=== PATIENT | female | born 1935 | race Caucasian/White ===

== ENCOUNTER 2021-01-07 19:21 | Observation (INO) | payer MEDICARE, OTHER ==
[2021-01-07 19:39] LABS: Glucose,Whole Blood 141 mg/dL (75-99)
[2021-01-07] MEDS ORDERED: NITROGLYCERIN SL TABS 0.4 MG TAB SUBLINGUAL PRN (19:42)
--- NOTE | 2021-01-07 19:42 | ED ---
General Adult HPI - General Stated complaint: Abnormal Labs Time Seen by Provider: 01/07/21 19:21 Source: patient, RN notes reviewed, old records reviewed - History of Present Illness Initial comments: This is an 85-year-old female presents emergency department from [facility]. She has a past medical history significant for anemia soft to cancer bypass surgery. Patient was weak today and slowly went down to the floor and was then brought to the hospital when she got there her sugar was in the 50s and they gave her an amp of D50 and she was feeling much better at that point in time however because she bumped her head they did a CAT scan which showed no acute abnormality. Lab work was done and a chest x-ray was done. According to the physician there the patient's troponin was elevated at 0.107 and he repeated a few hours later and was 0.123. Patient has no history today of any chest pain or difficulty breathing because of the elevated troponin the physician wanted the patient to be evaluated by cardiology. I spoke with the patient she has no complaints currently and feels at her baseline. Patient states she had a transfusion of packed red blood cells yesterday. - Related Data Allergies Allergy/AdvReac Type Severity Reaction Status Date / Time codeine AdvReac Confusion Verified 01/07/21 19:45 Sulfa (Sulfonamide AdvReac Confusion Verified 01/07/21 19:45 Antibiotics) Review of Systems ROS Statement: Those systems with pertinent positive or pertinent negative responses have been documented in the HPI. ROS Other: All systems not noted in ROS Statement are negative. General Exam - General Exam Comments Initial Comments: GENERAL: Patient is well-developed and well-nourished. Patient is nontoxic and well- hydrated and is in no acute distress. ENT: Neck is soft and supple. No significant lymphadenopathy is noted. Oropharynx is clear. Moist mucous membranes. Neck has full range of motion without eliciting any pain. EYES: The sclera were anicteric and conjunctiva were pink and moist. Extraocular movements were intact and pupils were equal round and reactive to light. Eyelids were unremarkable. PULMONARY: Unlabored respirations. Good breath sounds bilaterally. No audible rales rhonchi or wheezing was noted. CARDIOVASCULAR: There is a regular rate and rhythm without any murmurs gallops or rubs. ABDOMEN: Soft and nontender with normal bowel sounds. SKIN: Skin is clear with no lesions or rashes and otherwise unremarkable. NEUROLOGIC: Patient is alert and oriented x3. Cranial nerves II through XII are grossly intact. Motor and sensory are also intact. Normal speech, volume and content. Symmetrical smile. MUSCULOSKELETAL: Normal extremities with adequate strength and full range of motion. No lower extremity swelling or edema. No calf tenderness. LYMPHATICS: No significant lymphadenopathy is noted PSYCHIATRIC: Normal psychiatric evaluation. Course Vital Signs 01/07/21 19:39 Temperature 98.7 F Pulse Rate 86 Respiratory 19 Rate Blood Pressure 140/60 O2 Sat by Pulse 96 Oximetry Medical Decision Making - Medical Decision Making I reviewed all the patient's lab work and x-rays and CAT scans from the other facility. I spoke with Dr. Chowdhury agreed to admit the patient admitted the patient I wrote admitting orders I consult cardiology. Because the patient's anemia I did not start the patient on heparin. EKG shows normal sinus rhythm at 82 bpm AR interval is on a 42 QRS is 86 QT interval 342 QTC is 399. Patient's EKG shows no ST segment elevation or depression. - Lab Data Lab Results 01/07/21 Range/Units 19:27 POC Glucose (mg/dL) 141 H (75-99) mg/dL POC Glu Reversal Print Inspector ID Lesley Serrano Disposition Clinical Impression: Elevated troponin, Fall, Anemia, History of esophageal cancer Disposition: ADMITTED IP TO THIS HOSP Referrals: Sudheer Lund MD [Primary Care Provider] - 1-2 days Time of Disposition: 19:41
[2021-01-07 20:17] LABS: Anisocytosis Slight; Basophils % (A) 0 %; Eosinophils # (A) 0.1 k/uL (0-0.7); Eosinophils % (A) 3 %; HCT 30.5 % (34.0-46.0); HGB 9.8 gm/dL (11.4-16.0); Hypochromasia Slight; Lymphocytes # (A) 0.6 k/uL (1.0-4.8); Lymphocytes % (A) 11 %; MCH 24.6 pg (25.0-35.0); MCHC 32.2 g/dL (31.0-37.0); MCV 76.5 fL (80.0-100.0); Mean Platelet Volume 8.2; Microcytosis Slight; Monocytes # (A) 0.3 k/uL (0-1.0); Monocytes % (A) 5 %; Neutrophils # (A) 4.4 k/uL (1.3-7.7); Neutrophils % (A) 81 %; Platelet Count 236 k/uL (150-450); RBC 3.99 m/uL (3.80-5.40); RDW 19.1 % (11.5-15.5); WBC 5.5 k/uL (3.8-10.6)
[2021-01-07] MEDS ORDERED: ONDANSETRON ODT 4 MG TAB PO PRN (21:33)
[2021-01-07 21:44] LABS: Glucose,Whole Blood 110 mg/dL (75-99)
[2021-01-07] MEDS: INSULIN ASPART (NovoLOG) 100 UNIT/ML VIAL SQ SCH (22:08)
[2021-01-08] MEDS ORDERED: NITROGLYCERIN OINT 1 INCH/GM PACKET TOPICAL SCH
[2021-01-08 03:30] LABS: Glucose,Whole Blood 192 mg/dL (75-99)
[2021-01-08 06:07] LABS: Glucose,Whole Blood 181 mg/dL (75-99)
[2021-01-08] MEDS: INSULIN ASPART (NovoLOG) 100 UNIT/ML VIAL SQ SCH ×4 (06:44→21:51)
[2021-01-08] MEDS: PANTOPRAZOLE 40 MG TABLET PO SCH (06:44)
[2021-01-08] MEDS: LEVOTHYROXINE 125 MCG TAB PO SCH (06:44)
[2021-01-08] MEDS: ATORVASTATIN 40 MG TAB PO SCH (08:34)
[2021-01-08] MEDS: ESCITALOPRAM 20 MG TAB PO SCH (08:34)
[2021-01-08] MEDS: ASPIRIN 81 MG PO SCH (08:34)
[2021-01-08] MEDS: FENOFIBRATE 160 MG TAB PO SCH (08:35)
[2021-01-08] MEDS: INSULIN DETEMIR (LEVEMIR) 100 UNIT/ML SYR SQ SCH (08:35)
[2021-01-08] MEDS: ISOSORBIDE MONONITRATE ER 30 MG TAB.ER.24H PO SCH (08:35)
[2021-01-08] MEDS: LACTOBACILLUS ACIDOPH & BULGAR 1 EACH PACKET PO SCH (08:35)
[2021-01-08] MEDS: metFORMIN 500 MG TAB PO SCH ×2 (08:41→17:19)
[2021-01-08] MEDS ORDERED: NON FORMULARY DRUG (Dulaglutide [Trulicity] 1.5 MG/0.5 ML Each) SQ SCH (09:00)
[2021-01-08] MEDS ORDERED: ASPIRIN 325 MG TAB PO SCH (09:00)
[2021-01-08 09:19] LABS: Anisocytosis Slight; Basophils % (A) 0 %; Eosinophils # (A) 0.1 k/uL (0-0.7); Eosinophils % (A) 3 %; HGB 9.3 gm/dL (11.4-16.0); Hypochromasia Marked; Lymphocytes # (A) 0.6 k/uL (1.0-4.8); Lymphocytes % (A) 15 %; MCH 24.1 pg (25.0-35.0); MCV 80.3 fL (80.0-100.0); Mean Platelet Volume 7.7; Microcytosis Slight; Monocytes # (A) 0.3 k/uL (0-1.0); Monocytes % (A) 7 %; Neutrophils # (A) 2.8 k/uL (1.3-7.7); Neutrophils % (A) 73 %; Platelet Count 203 k/uL (150-450); RBC 3.86 m/uL (3.80-5.40); RDW 18.9 % (11.5-15.5); WBC 3.8 k/uL (3.8-10.6)
[2021-01-08 09:23] LABS: Calcium 8.8 mg/dL (8.4-10.2); Potassium 4.5 mmol/L (3.5-5.1)
--- NOTE | 2021-01-08 11:25 | P.CRDCN ---
History of Present Illness History of present illness: HISTORY OF PRESENTING ILLNESS This is a pleasant 85-year-old female past medical history significant for coronary artery disease s/p 4v CABG (Per patient's son it was and done in [facility]), type 2 diabetes, hypertension, hypothyroidism, esophageal cancer with chemotherapy and radiation, anemia with blood transfusions as an outpatient, most recently in 01/06 per [facility] report. She is a poor historian. Per patient's son, Patient sees Dr. Kc in [place]. We have been asked to see in consultation for elevated troponin. Patient is seen and examined at bedside. She states she has been in and out of the hospital for some time. Patient was transferred from [facility] yesterday. She states yesterday she was feeling lightheaded and fell at home in the morning, she did hit her head. She states when she falls, she states she does not getting warning signs. She will just be walking, and feel like she is going to go down to the ground. This has happened at least 3 times in the past 1-2 months. She is unable to give an accurate story of the event. When EMS arrived her initial blood sugar was in the 50s, which improved with PO Dextrose. She states she has followed with a advanced solutions architect but unsure when and does not know the specifics of her workup. She has been feeling short of breath lately. She denies loss of consciousness, dizziness, chest pain, orthopnea or PND, palpitations. Denies bleeding in urine or stool. She denies history of stroke. Denies smoking. Patient is unsure of what medications she takes at home. Workup at [facility] revealed Lab data- Sodium 138, K 4.4, BUN 16, sCr 0.8, Troponin 0.12, 0.10, blood sugars 65, 135, WBC 2.8, Hgb 8.5, Platelets 231. CT head report revealed- no acute intracranial hemorrhage or midline shift. Mild to moderate diffuse age related cerebral atrophy and chronic small vessel ischemic change. No significant change from Prior CT Chest xray- Stable cardiomegaly. Overlying sternal wires and mediastinal clips. No suspicious acute cardiopulmonary process. DIAGNOSTICS EKG reveals sinus mechanism HR 82, non-specific ST-T wave abnormalities .No prior EKG to compare Telemetry tracings indicate sinus mechanism HR 70-80s Laboratory reviewed, WBC 5.5, Hgb 9.8, Plt 236, sodium 136, potassium 4.5, BUN 18, serum creatinine 0.9, proBNP 1040 Current home cardiac medications listed in the chart include metoprolol wiley ccinate 25mg daily, Lasix 40mg daily, Fenofibrate 134mg daily, Aspirin 81mg daily atorvastatin 40mg daily. REVIEW OF SYSTEMS At the time of my exam: CONSTITUTIONAL: Denies fever or chills. CARDIOVASCULAR: +shortness of breath Denies chest pain, orthopnea, PND or palpitations. RESPIRATORY: Denies cough. GASTROINTESTINAL: Denies abdominal pain, diarrhea, constipation, nausea or vomiting. MUSCULOSKELETAL: Denies myalgias. NEUROLOGIC: +lightheadedness Denies numbness, tingling, headacbe or weakness. ENDOCRINE: Denies fatigue, weight change, polydipsia or polyurina. GENITOURINARY: Denies burning, hematuria or urgency with micturation. HEMATOLOGIC: + history of anemia, Denies bleeding. PHYSICAL EXAMINATION Blood pressure 148/70 heart rate 83 afebrile and maintaining oxygen saturation on room air. CONSTITUTIONAL: No apparent distress. HEENT: Head is normocephalic. Pupils are equal, round. Sclerae anicteric. Mucous membranes of the mouth are moist. No JVD. CHEST EXAMINATION: Lungs are clear to auscultation. No chest wall tenderness is noted on palpation or with deep breathing. HEART EXAMINATION: Regular rate and rhythm. S1, S2 heard. Systolic murmur noted at apex No gallops or rub. ABDOMEN: Soft, nontender. Positive bowel sounds. EXTREMITIES: 2+ peripheral pulses, no lower extremity edema and no calf tenderness. SKIN: warm, dry NEUROLOGIC EXAMINATION: Patient is awake, alert and oriented x 2-3. She is unaware of her medical history. ASSESSMENT Elevated troponin no EKG evidence of ischemia and no chest pain Multiple Falls, unclear etiology at this time Type 2 Diabetes Hypoglycemia Coronary artery disease s/p 4vessel CABG early PLAN Obtain 2D echocardiogram and doppler study to assess cardiac structure and function. Will obtain records from Dr. Kc's office. Continue home cardiac medications aspirin, statin, metoprolol succinate, and Imdur, fenofibrate Unclear why patient is not on an ACEI/ARB, will review records. Further recommendations based on clinical course Nurse Practitioner note has been reviewed, I agree with a documented findings and plan of care. Patient was seen and examined. Past Medical History Past Medical History: Diabetes Mellitus, GERD/Reflux, Hypertension, Thyroid Disorder Additional Past Medical History / Comment(s): esophagus cancer. blood tra nsfusions (anemia). anxiety. CHF. History of Any Multi-Drug Resistant Organisms: None Reported Past Surgical History: Cholecystectomy, Coronary Bypass/CABG, Orthopedic Surgery Additional Past Surgical History / Comment(s): D & C. cataracts. bladder surgery. stripping and ligation of vein of lower leg. Right hip. back. Past Anesthesia/Blood Transfusion Reactions: No Reported Reaction Past Psychological History: No Psychological Hx Reported Smoking Status: Never smoker Past Alcohol Use History: None Reported Past Drug Use History: None Reported Medications and Allergies Home Medications Medication Instructions Recorded Confirmed Type Aspirin EC [Ecotrin Low Dose] 81 mg PO DAILY 01/07/21 01/07/21 History Atorvastatin Calcium [Lipitor] 40 mg PO DAILY 01/07/21 01/07/21 History Bifidobacterium Infantis [Align] 4 mg PO DAILY 01/07/21 01/07/21 History Cetirizine HCl [Zyrtec] 10 mg PO DAILY 01/07/21 01/07/21 History Dulaglutide [Trulicity] 1.5 mg SQ WE 01/07/21 01/07/21 History Ergocalciferol (Vitamin D2) 1,250 mcg PO WE 01/07/21 01/07/21 History [Drisdol (50,000 Iu)] Escitalopram [Lexapro] 20 mg PO DAILY 01/07/21 01/07/21 History Fenofibrate,Micronized 134 mg PO DAILY 01/07/21 01/07/21 History [Fenofibrate] Fluticasone Nasal [place] [Flonase 1 spray EA NOSTRIL DAILY 01/07/21 01/07/[address] Nasal [place]] Furosemide [Lasix] 40 mg PO DAILY 01/07/21 01/07/21 History Ibuprofen 400 mg PO Q8H PRN 01/07/21 01/07/21 History Insulin Degludec [Tresiba 32 units SQ DAILY 01/07/21 01/07/21 History Flextouch U-100 Pen] Isosorbide Mononitrate ER [Imdur] 30 mg PO DAILY 01/07/21 01/07/21 History Levothyroxine Sodium [Synthroid] 125 mcg PO DAILY 01/07/21 01/07/21 History Meclizine [Antivert] 25 mg PO DAILY 01/07/21 01/07/21 History Ondansetron Odt [Zofran Odt] 4 mg PO Q8HR PRN 01/07/21 01/07/21 History Pantoprazole Sodium [Protonix] 20 mg PO DAILY 01/07/21 01/07/21 History Potassium Chloride [Potassium 8 meq PO DAILY 01/07/21 01/07/21 History Chloride ER] metFORMIN HCL 500 mg PO BID 01/07/21 01/07/21 History Metoprolol Succinate (ER) [Toprol 25 mg PO DAILY 01/08/21 01/08/21 History Xl] Mirabegron [Myrbetriq] 50 mg PO DAILY 01/08/21 01/08/21 History Allergies Allergy/AdvReac Type Severity Reaction Status Date / Time codeine AdvReac Confusion Verified 01/07/21 20:37 Sulfa (Sulfonamide AdvReac Confusion Verified 01/07/21 20:37 Antibiotics) Physical Exam Vitals: Vital Signs Temp Pulse Pulse Resp BP BP Pulse Ox 01/08/21 03:30 97.9 F 83 16 148/70 94 L 01/08/21 00:00 83 16 136/56 96 01/07/21 21:45 98.0 F 81 18 146/69 96 01/07/21 19:39 98.7 F 86 19 140/60 96 Intake and Output 01/07/21 01/08/21 01/08/21 22:59 06:59 14:59 Other: Voiding Method Toilet Toilet # Voids 2 Weight 75.296 kg 77.5 kg Results 01/08/21 07:15 01/08/21 07:15 Cardiac Enzymes 01/07/21 01/07/21 Range/Units 20:10 22:41 Troponin I 0.123 H* 0.118 H* (0.000-0.034) ng/mL CBC 01/07/21 Range/Units 20:10 WBC 5.5 (3.8-10.6) k/uL RBC 3.99 (3.80-5.40) m/uL Hgb 9.8 L (11.4-16.0) gm/dL Hct 30.5 L (34.0-46.0) % Plt Count 236 (150-450) k/uL Current Medications Generic Name Dose Route Start Last Admin Trade Name Freq PRN Reason Stop Dose Admin Aspirin 81 mg 01/08/21 09:00 Aspirin 81 Mg PO DAILY [facility] Atorvastatin Calcium 40 mg 01/08/21 09:00 Atorvastatin 40 Mg Tab PO DAILY [facility] Escitalopram Oxalate 20 mg 01/08/21 09:00 Escitalopram 20 Mg Tab PO DAILY [facility] Fenofibrate 160 mg 01/08/21 09:00 Fenofibrate 160 Mg Tab PO DAILY [facility] Insulin Aspart 0 unit 01/07/21 21:34 01/08/21 06:44 Insulin Aspart (Novolog) 100 Unit/Ml Vial SQ 100 unit ACHS [facility] Administration Protocol Insulin Detemir 26 unit 01/08/21 09:00 Insulin Detemir (Levemir) 100 Unit/Ml Syr SQ DAILY [facility] Isosorbide Mononitrate 30 mg 01/08/21 09:00 Isosorbide Mononitrate Er 30 Mg Tab.Er.24h PO DAILY [facility] Lactobacillus Acidoph/Bulgaricus 1 each 01/08/21 09:00 Lactobacillus Acidoph & Bulgar 1 Each Packet PO DAILY [facility] Levothyroxine Sodium 125 mcg 01/08/21 06:30 01/08/21 06:44 Levothyroxine 125 Mcg Tab PO 125 mcg DAILY@0630 [facility] Administration Metformin HCl 500 mg 01/08/21 07:30 Metformin 500 Mg Tab PO BID-W/MEALS [facility] Nitroglycerin 0.4 mg 01/07/21 19:42 Nitroglycerin Sl Tabs 0.4 Mg Tab SUBLINGUAL Q5M PRN Chest Pain Non-Formulary Medication 1.5 mg 01/08/21 09:00 Dulaglutide [Trulicity] SQ WE [facility] Ondansetron HCl 4 mg 01/07/21 21:33 Ondansetron Odt 4 Mg Tab PO Q8HR PRN Nausea And Vomiting Pantoprazole Sodium 40 mg 01/08/21 07:30 01/08/21 06:44 Pantoprazole 40 Mg Tablet PO 40 mg [id number] [facility] Administration Intake and Output 01/07/21 01/08/21 01/08/21 22:59 06:59 14:59 Other: Voiding Method Toilet Toilet # Voids 2 Weight 75.296 kg 77.5 kg 01/07/21 20:10
--- NOTE | 2021-01-08 11:28 | ECHOF ---
Referral Reason:LV function MEASUREMENTS -------- HEIGHT: 157.5 cm WEIGHT: 77.1 kg BP: IVSd: 1.4 cm (0.6 - 1.1) LVIDd: 4.3 cm (3.9 - 5.3) LVPWd: 1.1 cm (0.6 - 1.1) IVSs: 1.7 cm LVIDs: 3.1 cm LVPWs: 1.5 cm LAESV Index (A-L): 47.97 ml/m Ao Diam: 2.9 cm (2.0 - 3.7) AV Cusp: 1.3 cm (1.5 - 2.6) LA Diam: 3.9 cm (2.7 - 3.8) MV EXCURSION: 14.924 mm (> 18.000) MV EF SLOPE: 56 mm/s (70 - 150) EPSS: 0.6 cm MV E Mendoza: 1.19 m/s MV DecT: 246 ms MV A Mendoza: 1.23 m/s MV E/A Ratio: 0.97 RAP: 5.00 mmHg RVSP: 33.05 mmHg FINDINGS -------- Sinus rhythm. This was a techncally difficult study with suboptimal views, , Lumason utilized for enhancement of im ages. The left ventricular size is normal. There is mild concentric left ventricular hypertrophy. Overa ll left ventricular systolic function is low-normal with, an EF between 50 - 55 %. The right ventricle is normal in size. LA is severely dilated >40 ml/m2 The right atrial size is normal. There is mild aortic valve sclerosis. There is no evidence of aortic regurgitation. Mild mitral regurgitation is present. Mild tricuspid regurgitation present. Right ventricular systolic pressure is normal at < 35 mmHg. The pulmonic valve was not well visualized. Echo free space represents a pericardial fat pad. CONCLUSIONS -------- 1. The left ventricular size is normal. 2. There is mild concentric left ventricular hypertrophy. 3. Overall left ventricular systolic function is low-normal with, an EF between 50 - 55 %. 4. The right ventricle is normal in size. 5. LA is severely dilated >40 ml/m2 6. The right atrial size is normal. 7. There is mild aortic valve sclerosis. 8. Mild mitral regurgitation is present. 9. Mild tricuspid regurgitation present. 10. The pulmonic valve was not well visualized. 11. Echo free space represents a pericardial fat pad. RN CORONARY CARE UNIT: Keily Caro RDCS
[2021-01-08 11:35] LABS: Chol/HDL Ratio 3.72; LDL Cholesterol,Calculated 48.8 mg/dL (0.0-131.0); VLDL Calculation 30.2 mg/dL (5.00-40.00)
[2021-01-08 11:48] LABS: Glucose,Whole Blood 236 mg/dL (75-99)
[2021-01-08] MEDS: METOPROLOL SUCCINATE (ER) 25 MG TAB.ER.24H PO SCH (12:10)
--- NOTE | 2021-01-08 16:09 | P.HPIM ---
History of Present Illness H&P Date: 01/08/21 Chief Complaint: Positive troponin History of presenting complaint: This is a pleasant 85-year-old patient who follows with Dr. Lund. Chronic stable medical conditions include GERD, hypertension, hypothyroid, anxiety, CHF, CAD. Had a baseline patient uses a walker. Lives alone. Has a diagnosis of esophageal cancer. Being followed by Dr. Martinez. Patient has received 15 t reatments of any dictation. She is due to start off with chemotherapy anytime. Patient was transferred here from [facility] when she presented there with falling and passing out. She was found to have an Accu-Chek of 55. Patient does take both Levemir) chronicity. Patient's appetite is fair. Denies any dizziness or lightheadedness. Denies any chest pain or palpitation. Appetite is fair. Patient also has a positive troponin. No chest pain no shortness of breath Review of systems: GEN.: Tired EYES: None HEENT: None NECK: None RESPIRATORY: None CARDIOVASCULAR: None GASTROINTESTINAL: None GENITOURINARY: Urinary incontinence MUSCULOSKELETAL: [Arthritic pain the joints LYMPHATICS: None HEMATOLOGICAL: None PSYCHIATRY: None NEUROLOGICAL: Does use a walker Past medical history to include: Diabetes, GERD, hypertension, hypothyroid, esophageal cancer has received radiation treatment, pending chemotherapy, CAD, CHF Social history: Lives alone. Does use a walker. No history of smoking or alcohol Family history: Reviewed, noncontributory to presentation Physical examination: VITAL SIGNS: 98, 74, 18, 155/67, 96% room air GENERAL: BMI 31.3, declining bed, awake, comfortable. EYES: Pupils equal. Conjunctiva normal. HEENT: External appearance of nose and ears normal, oral cavity grossly normal. NECK: JVD not raised; masses not palpable. HEART: First and second heart sounds are normal; no edema. LUNGS: Respiratory rate normal; clear to auscultation. ABDOMEN: Soft, nontender, liver spleen not palpable, no masses palpable. PSYCH: Alert and oriented x3; mood and affect normal MUSCULAR skeletal: Evidence of OA in multiple joints. NEUROLOGICAL: Cranial nerves grossly intact; no facial asymmetry, power and sensation grossly intact. LYMPHATICS: No lymph nodes palpable in the axilla and neck INVESTIGATIONS, reviewed in the clinical context: White count 3.8 hemoglobin 9.3 platelets 203 potassium 4.5 creatinine 0.9 Accu- Chek 141 proBNP 1040 LDL 48 EKG tracing personally reviewed by me-sinus rhythm, nonspecific ST segment changes. Heart rate 82 Troponin I, 0.123, 0.118 Coronavirus [PCR]: Not detected Assessment and plan: -This is a patient presented episodes of falling/syncope. Denies any obvious dizziness especially on standing up. Has a fair appetite. Accu-Chek was found to be 55. Most likely the cause of pacing passing out. Patient placed on telemetry to rule out any arrhythmia. May consider a Holter outpatient monitoring. Cardiology consulted -Diabetes mellitus type 2, chronically on insulin, uncontrolled with hypoglycemia Patient does not have herTrulicityy here. This was prescribed a while ago. Patient had received 26 units of Levemir this morning. Discussed with the patient. Will watch patient's Accu-Cheks today. Adjust insulin accordingly. 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 Patient has received 15 doses of radiation treatment. Due to start chemotherapy anytime. Does follow with as an outpatient. -Chronic gait dysfunction Uses a walker at home -Troponin leak likely due to hemodynamic mismatch due to hypoglycemia. No obvious clinical evidence of ACS. Telemetry. Follow with cardiology Home medications resumed. Patient does not have trulicity. That is being held. Rodolfo Accu-Cheks will decide the dose of Levemir. Telemetry. Cardiology consultation. Past Medical History Past Medical History: Diabetes Mellitus, GERD/Reflux, Hypertension, Thyroid Disorder Additional Past Medical History / Comment(s): esophagus cancer. blood transfusions (anemia). anxiety. CHF. History of Any Multi-Drug Resistant Organisms: None Reported Past Surgical History: Cholecystectomy, Coronary Bypass/CABG, Orthopedic Surgery Additional Past Surgical History / Comment(s): D & C. cataracts. bladder surgery. stripping and ligation of vein of lower leg. Right hip. back. Past Anesthesia/Blood Transfusion Reactions: No Reported Reaction Past Psychological History: No Psychological Hx Reported Smoking Status: Never smoker Past Alcohol Use History: None Reported Past Drug Use History: None Reported Medications and Allergies Home Medications Medication Instructions Recorded Confirmed Type Aspirin EC [Ecotrin Low Dose] 81 mg PO DAILY 01/07/21 01/07/21 History Atorvastatin Calcium [Lipitor] 40 mg PO DAILY 01/07/21 01/07/21 History Bifidobacterium Infantis [Align] 4 mg PO DAILY 01/07/21 01/07/21 History Cetirizine HCl [Zyrtec] 10 mg PO DAILY 01/07/21 01/07/21 History Dulaglutide [Trulicity] 1.5 mg SQ WE 01/07/21 01/07/21 History Ergocalciferol (Vitamin D2) 1,250 mcg PO WE 01/07/21 01/07/21 History [Drisdol (50,000 Iu)] Escitalopram [Lexapro] 20 mg PO DAILY 01/07/21 01/07/21 History Fenofibrate,Micronized 134 mg PO DAILY 01/07/21 01/07/21 History [Fenofibrate] Fluticasone Nasal Adrian [Flonase 1 spray EA NOSTRIL DAILY 01/07/21 01/07/21 History Nasal Adrian] Furosemide [Lasix] 40 mg PO DAILY 01/07/21 01/07/21 History Ibuprofen 400 mg PO Q8H PRN 01/07/21 01/07/21 History Insulin Degludec [Tresiba 32 units SQ DAILY 01/07/21 01/07/21 History Flextouch U-100 Pen] Isosorbide Mononitrate ER [Imdur] 30 mg PO DAILY 01/07/21 01/07/21 History Levothyroxine Sodium [Synthroid] 125 mcg PO DAILY 01/07/21 01/07/21 History Meclizine [Antivert] 25 mg PO DAILY 01/07/21 01/07/21 History Ondansetron Odt [Zofran Odt] 4 mg PO Q8HR PRN 01/07/21 01/07/21 History Pantoprazole Sodium [Protonix] 20 mg PO DAILY 01/07/21 01/07/21 History Potassium Chloride [Potassium 8 meq PO DAILY 01/07/21 01/07/21 History Chloride ER] metFORMIN HCL 500 mg PO BID 01/07/21 01/07/21 History Metoprolol Succinate (ER) [Toprol 25 mg PO DAILY 01/08/21 01/08/21 History Xl] Mirabegron [Myrbetriq] 50 mg PO DAILY 01/08/21 01/08/21 History Allergies Allergy/AdvReac Type Severity Reaction Status Date / Time codeine AdvReac Confusion Verified 01/07/21 20:37 Sulfa (Sulfonamide AdvReac Confusion Verified 01/07/21 20:37 Antibiotics) Physical Exam Vitals: Vital Signs Temp Pulse Pulse Resp BP BP Pulse Ox 01/08/21 08:00 98 F 74 18 155/67 96 01/08/21 03:30 97.9 F 83 16 148/70 94 L 01/08/21 00:00 83 16 136/56 96 01/07/21 21:45 98.0 F 81 18 146/69 96 01/07/21 19:39 98.7 F 86 19 140/60 96 Intake and Output 01/07/21 01/08/21 01/08/21 22:59 06:59 14:59 Other: Voiding Method Toilet Toilet # Voids 2 1 # Bowel Movements 0 Weight 75.296 kg 77.5 kg Results CBC & Chem 7: 01/08/21 07:15 01/08/21 07:15 Labs: Abnormal Lab Results - Last 24 Hours (Table) 01/07/21 01/07/21 01/07/21 Range/Units 19:27 20:10 20:10 Hgb 9.8 L (11.4-16.0) gm/dL Hct 30.5 L (34.0-46.0) % MCV 76.5 L (80.0-100.0) fL MCH 24.6 L (25.0-35.0) pg MCHC (31.0-37.0) g/dL RDW 19.1 H (11.5-15.5) % Lymphocytes # 0.6 L (1.0-4.8) k/uL Sodium (137-145) mmol/L BUN (7-17) mg/dL Glucose (74-99) mg/dL POC Glucose (mg/dL) 141 H (75-99) mg/dL Troponin I 0.123 H* (0.000-0.034) ng/mL 01/07/21 01/07/21 01/08/21 Range/Units 21:43 22:41 03:22 Hgb (11.4-16.0) gm/dL Hct (34.0-46.0) % MCV (80.0-100.0) fL MCH (25.0-35.0) pg MCHC (31.0-37.0) g/dL RDW (11.5-15.5) % Lymphocytes # (1.0-4.8) k/uL Sodium (137-145) mmol/L BUN (7-17) mg/dL Glucose (74-99) mg/dL POC Glucose (mg/dL) 110 H 192 H (75-99) mg/dL Troponin I 0.118 H* (0.000-0.034) ng/mL 01/08/21 01/08/21 01/08/21 Range/Units 06:06 07:15 07:15 Hgb 9.3 L (11.4-16.0) gm/dL Hct 31.0 L (34.0-46.0) % MCV (80.0-100.0) fL MCH 24.1 L (25.0-35.0) pg MCHC 30.0 L (31.0-37.0) g/dL RDW 18.9 H (11.5-15.5) % Lymphocytes # 0.6 L (1.0-4.8) k/uL Sodium 136 L (137-145) mmol/L BUN 18 H (7-17) mg/dL Glucose 141 H (74-99) mg/dL POC Glucose (mg/dL) 181 H (75-99) mg/dL Troponin I (0.000-0.034) ng/mL Thrombosis Risk Factor Assmnt - Choose All That Apply Each Factor Represents 1 point: Obesity (BMI >25) Other Risk Factors: Yes Each Risk Factor Represents 3 Points: Age 75 years or older Other congenital or acquired thrombophilia - If yes, enter type in comment: No Thrombosis Risk Factor Assessment Total Risk Factor Score: 4 Thrombosis Risk Factor Assessment Level: Moderate Risk
[2021-01-08 17:08] LABS: Glucose,Whole Blood 226 mg/dL (75-99)
[2021-01-08 20:13] LABS: Glucose,Whole Blood 197 mg/dL (75-99)
[2021-01-09 06:34] LABS: Glucose,Whole Blood 182 mg/dL (75-99)
[2021-01-09] MEDS: PANTOPRAZOLE 40 MG TABLET PO SCH (06:36)
[2021-01-09] MEDS: metFORMIN 500 MG TAB PO SCH (06:36)
[2021-01-09] MEDS: LEVOTHYROXINE 125 MCG TAB PO SCH (06:36)
[2021-01-09] MEDS: INSULIN ASPART (NovoLOG) 100 UNIT/ML VIAL SQ SCH ×2 (06:38→12:23)
[2021-01-09 07:13] LABS: Calcium 9.2 mg/dL (8.4-10.2); Potassium 4.7 mmol/L (3.5-5.1)
[2021-01-09 09:38] VITALS: RESP 16; TEMP 98
[2021-01-09] MEDS: ATORVASTATIN 40 MG TAB PO SCH (09:47)
[2021-01-09] MEDS: ASPIRIN 81 MG PO SCH (09:47)
[2021-01-09] MEDS: INSULIN DETEMIR (LEVEMIR) 100 UNIT/ML SYR SQ SCH (09:47)
[2021-01-09] MEDS: FENOFIBRATE 160 MG TAB PO SCH (09:47)
[2021-01-09] MEDS: METOPROLOL SUCCINATE (ER) 25 MG TAB.ER.24H PO SCH (09:47)
[2021-01-09] MEDS: ISOSORBIDE MONONITRATE ER 30 MG TAB.ER.24H PO SCH (09:47)
[2021-01-09] MEDS: ESCITALOPRAM 20 MG TAB PO SCH (09:47)
[2021-01-09] MEDS: LACTOBACILLUS ACIDOPH & BULGAR 1 EACH PACKET PO SCH (09:48)
[2021-01-09 12:06] LABS: Glucose,Whole Blood 155 mg/dL (75-99)
[2021-01-09 12:22] VITALS: BP 132/65; PULSE 84
--- NOTE | 2021-01-09 13:30 | P.PN ---
Subjective This is a pleasant 85-year-old female past medical history significant for coronary artery disease s/p 4v CABG (Per patient's son it was and done in [facility]), type 2 diabetes, hypertension, hypothyroidism, esophageal cancer with chemotherapy and radiation, anemia with blood transfusions as an outpatient, most recently in 01/06 per [facility] report. She is a poor historian. Per patient's son, Patient sees Dr. Kc in [place]. We have been asked to see in consultation for elevated troponin. Patient is seen and examined at bedside. She states she has been in and out of the hospital for some time. Patient was transferred from [facility] yesterday. She states yesterday she was feeling lightheaded and fell at home in the morning, she did hit her head. She states when she falls, she states she does not getting warning signs. She will just be walking, and feel like she is going to go down to the ground. This has happened at least 3 times in the past 1-2 months. She is unable to give an accurate story of the event. When EMS arrived her initial blood sugar was in the 50s, which improved with PO Dextrose. She states she has followed with a search specialist but unsure when and does not know the specifics of her workup. She has been feeling short of breath lately. She denies loss of consciousness, dizziness, chest pain, orthopnea or PND, palpitations. Denies bleeding in urine or stool. She denies history of stroke. Denies smoking. Patient is unsure of what medications she takes at home. EKG reveals sinus mechanism HR 82, non- specific ST-T wave abnormalities .No prior EKG to compare Workup at [place] revealed Lab data- Sodium 138, K 4.4, BUN 16, sCr 0.8, Troponin 0.12, 0.10, blood sugars 65, 135, WBC 2.8, Hgb 8.5, Platelets 231. CT head report revealed- no acute intracranial hemorrhage or midline shift. Mild to moderate diffuse age related cerebral atrophy and chronic small vessel isc hemic change. No significant change from Prior CT Chest xray- Stable cardiomegaly. Overlying sternal wires and mediastinal clips. No suspicious acute cardiopulmonary process. Records Obtained from Dr. Kc office: -Patient has a history of coronary artery disease s/p CABG with GÓMEZ to LAD, saphenous vein graft to RCA, saphenous vein graft to the circumflex, and antoher saphenous vein graft possibly to the diagonal, diastolic heart failure, hyperlipidemia, hypertension. -Lexiscan Stress Test 09/2019- preserved wall motion and ejection fraction, small posterior wall fixed defect minimally reversible -Echocardiogram 09/2019 normal LV function, EF 55-60%, mild to moderate mitral regurgitation, mild tricuspid regurgitation, aortic valve sclerosis without stenosis 01/09/2021: Patient seen and examined at bedside, no acute distress. She denies any lightheadedness, dizziness, chest pain, shortness of breath. Blood pressure 132/65, heart rate 84, afebrile, maintaining oxygen saturation on room air. Patient maintaining sinus mechanism on monitor. Echocardiogram today revealed EF 5055%, LA severely dilated, mild mitral rotation, mild tricuspid regurgitation. PHYSICAL EXAMINATION CONSTITUTIONAL: No apparent distress. HEENT: Neck Supple No JVD CHEST EXAMINATION: Lungs are clear to auscultation. No chest wall tenderness is noted on palpation or with deep breathing. HEART EXAMINATION: Regular rate and rhythm. S1, S2 heard. Systolic murmur noted at apex No gallops or rub. ABDOMEN: Soft, nontender. Positive bowel sounds. EXTREMITIES: 2+ peripheral pulses, no lower extremity edema and no calf tenderness. NEUROLOGIC EXAMINATION: Patient is awake, alert and oriented x 2-3. She is unaware of her medical history. ASSESSMENT Elevated troponin no EKG evidence of ischemia and no chest pain Multiple Falls, possible syncope, unclear etiology at this time Type 2 Diabetes Hypoglycemia Coronary artery disease s/p 4vessel CABG early PLAN From a cardiology perspective, recommend 2 week event monitor to rule out arrhyt ankur Spoke with patient's son, and due to location they would like to continue to follow up with Dr. Gm Kc in [place] Continue home cardiac medications aspirin, statin, metoprolol succinate, and Imdur, fenofibrate Hold patients PO Lasix From cardiology perspective, patient stable to be discharged home once event monitors placed. Recommend patient follow up with her primary search specialist Dr. Kc Nurse Practitioner note has been reviewed, I agree with a documented findings and plan of care. Patient was seen and ex Objective - Vital Signs Vital signs: Vital Signs Temp 98.0 F 01/09/21 08:00 Pulse 84 01/09/21 12:00 Resp 16 01/09/21 12:00 BP 132/65 01/09/21 12:00 Pulse Ox 95 01/09/21 12:00 Intake & Output 01/08/21 01/09/21 01/09/21 18:59 06:59 18:59 Intake Total 240 Balance 240 Weight 76.2 kg Intake: Oral 240 Other: Voiding Method Toilet Toilet # Voids 1 1 1 # Bowel Movements 0 - Labs CBC & Chem 7: 01/08/21 07:15 01/09/21 06:06 Labs: Abnormal Lab Results - Last 24 Hours (Table) 01/08/21 01/08/21 01/09/21 Range/Units 17:06 20:10 06:06 Sodium 136 L (137-145) mmol/L Glucose 146 H (74-99) mg/dL POC Glucose (mg/dL) 226 H 197 H (75-99) mg/dL 01/09/21 01/09/21 Range/Units 06:32 11:58 Sodium (137-145) mmol/L Glucose (74-99) mg/dL POC Glucose (mg/dL) 182 H 155 H (75-99) mg/dL
--- NOTE | 2021-01-09 19:40 | P.DS ---
Providers Date of admission: 01/07/21 19:42 Expected date of discharge: 01/09/21 Attending physician: Lorne Chowdhury Consults: 01/07/21 19:42 Consult Physician Urgent Consulting Provider: [facility] Consult Reason/Comments: Elevated troponin Do you want consulting provider notified?: Yes Primary care physician: [facility] Course: Chief Complaint: Positive troponin History of presenting complaint: This is a pleasant 85-year-old patient who follows with Dr. Lund. Chronic stable medical conditions include GERD, hypertension, hypothyroid, anxiety, CHF, CAD. Had a baseline patient uses a walker. Lives alone. Has a diagnosis of esophageal cancer. Being followed by Dr. Martinez. Patient has received 15 treatments of radiation. She is due to start off with chemotherapy anytime. Patient was transferred here from [facility] when she presented there with falling and passing out. She was found to have an Accu-Chek of 55. Patient does take both Levemir) chronicity. Patient's appetite is fair. Denies any dizziness or lightheadedness. Denies any chest pain or palpitation. Appetite is fair. Patient also has a positive troponin. No chest pain no shortness of breath January 09: Patient doing better. Accu-Cheks are better. Discussed with the patient the following -Chronicity has been discontinued -Antivert, Lasix, Zyrtec that could be contribution to her syncope has been discontinued -Discussed with Dr. Cowan from cardiology. Patient will be getting a event monitor. -Patient to follow Accu-Cheks and follow with PCP -Tresiba decreased to 26 units daily. Consultation: Dr. Cowan from cardiology Past medical history to include: Diabetes, GERD, hypertension, hypothyroid, esophageal cancer has received radiation treatment, pending chemotherapy, CAD, CHF Social history: Lives alone. Does use a walker. No history of smoking or alcohol Family history: Reviewed, noncontributory to presentation Physical examination: VITAL SIGNS: Afebrile, 84, 16, 132/65, 95% room air GENERAL: Reclining in bed, awake, comfortable. EYES: Pupils equal. Conjunctiva normal. NECK: JVD not raised; masses not palpable. HEART: First and second heart sounds are normal; no edema. LUNGS: Respiratory rate normal; clear to auscultation. ABDOMEN: Soft, nontender, liver spleen not palpable, no masses palpable. PSYCH: Alert and oriented x3; mood and affect normal MUSCULAR skeletal: Evidence of OA in multiple joints. INVESTIGATIONS, reviewed in the clinical context: January 09: Sodium 136 potassium 4.7 creatinine 0.81. Accu-Cheks 182, 155 2-D echocardiogram: EF 50-55%. White count 3.8 hemoglobin 9.3 platelets 203 potassium 4.5 creatinine 0.9 Accu- Chek 141 proBNP 1040 LDL 48 EKG tracing personally reviewed by me-sinus rhythm, nonspecific ST segment changes. Heart rate 82 Troponin I, 0.123, 0.118 Coronavirus [PCR]: Not detected Assessment and plan: -Syncope likely from hypoglycemia. Event monitor to rule out arrhythmia. Also Lasix, Antivert, Zyrtec or discontinued at this could be contributing to her syncope -Diabetes mellitus type 2, chronically on insulin, uncontrolled with hypoglyc emia Chronicity discontinued. Decrease Tresiba to 26 units. 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 When necessary -Chronic urinary stress incontinence Continue Myrbetriq -GERD Protonix 20 mg daily -Essential hypertension Toprol-XL 25 mg a day -Esophageal cancer. Patient has received 15 doses of radiation treatment. Due to start chemotherapy anytime. Does follow with as an outpatient. -Chronic gait dysfunction Uses a walker at home -Troponin leak likely due to hemodynamic mismatch due to hypoglycemia. No obvious clinical evidence of ACS. Telemetry. Follow with cardiology Disposition: Home Plan - Discharge Summary Discharge Rx Participant: No New Discharge Prescriptions: Continue Pantoprazole Sodium [Protonix] 20 mg PO DAILY Bifidobacterium Infantis [Align] 4 mg PO DAILY Isosorbide Mononitrate ER [Imdur] 30 mg PO DAILY Escitalopram [Lexapro] 20 mg PO DAILY Atorvastatin Calcium [Lipitor] 40 mg PO DAILY Ondansetron Odt [Zofran ODT] 4 mg PO Q8HR PRN PRN Reason: Nausea And Vomiting Levothyroxine Sodium [Synthroid] 125 mcg PO DAILY Fluticasone Nasal Redfield [Flonase Nasal Redfield] 1 spray EA NOSTRIL DAILY Fenofibrate,Micronized [Fenofibrate] 134 mg PO DAILY Aspirin EC [Ecotrin Low Dose] 81 mg PO DAILY metFORMIN HCL 500 mg PO BID Ergocalciferol (Vitamin D2) [Drisdol (50,000 Iu)] 1,250 mcg PO WE Mirabegron [Myrbetriq] 50 mg PO DAILY Metoprolol Succinate (ER) [Toprol XL] 25 mg PO DAILY Changed Insulin Degludec [Tresiba Flextouch U-100 Pen] 26 units SQ DAILY #0 Discontinued Potassium Chloride [Potassium Chloride ER] 8 meq PO DAILY Meclizine [Antivert] 25 mg PO DAILY Furosemide [Lasix] 40 mg PO DAILY Ibuprofen 400 mg PO Q8H PRN PRN Reason: Pain Dulaglutide [Trulicity] 1.5 mg SQ WE Cetirizine HCl [Zyrtec] 10 mg PO DAILY Discharge Medication List Aspirin EC [Ecotrin Low Dose] 81 mg PO DAILY 01/07/21 [History] Atorvastatin Calcium [Lipitor] 40 mg PO DAILY 01/07/21 [History] Bifidobacterium Infantis [Align] 4 mg PO DAILY 01/07/21 [History] Ergocalciferol (Vitamin D2) [Drisdol (50,000 Iu)] 1,250 mcg PO WE 01/07/21 [History] Escitalopram [Lexapro] 20 mg PO DAILY 01/07/21 [History] Fenofibrate,Micronized [Fenofibrate] 134 mg PO DAILY 01/07/21 [History] Fluticasone Nasal [place]field [Flonase Nasal Redfield] 1 spray EA NOSTRIL DAILY 01/07/21 [History] Isosorbide Mononitrate ER [Imdur] 30 mg PO DAILY 01/07/21 [History] Levothyroxine Sodium [Synthroid] 125 mcg PO DAILY 01/07/21 [History] Ondansetron Odt [Zofran ODT] 4 mg PO Q8HR PRN 01/07/21 [History] Pantoprazole Sodium [Protonix] 20 mg PO DAILY 01/07/21 [History] metFORMIN HCL 500 mg PO BID 01/07/21 [History] Metoprolol Succinate (ER) [Toprol XL] 25 mg PO DAILY 01/08/21 [History] Mirabegron [Myrbetriq] 50 mg PO DAILY 01/08/21 [History] Insulin Degludec [Tresiba Flextouch U-100 Pen] 26 units SQ DAILY #0 01/09/21 [Rx] Follow up Appointment(s)/Referral(s): Sudheer Lund MD [Primary Care Provider] - 1-2 days Patient Instructions/Handouts: Fall Prevention (DC) Activity/Diet/Wound Care/Special Instructions: Please wear event monitor for 2 weeks. This report will be sent to your binder cutter hand Dr. Gm Kc Please follow up with Dr. Gm Kc your binder cutter hand within 2-3 weeks Discharge Disposition: HOME SELF-CARE
== END 2021-01-09 16:15 | disposition home or self-care (01) ==
LOC: EC 19:21 → 3SCARD 19:42
PROVIDERS: ADMIT Hospitalist; ATTEND Hospitalist
DX: R55 Syncope and collapse (principal); R06.02 Shortness of breath; E11.649 Type 2 diabetes mellitus with hypoglycemia without coma; I11.0 Hypertensive heart disease with heart failure; I50.32 Chronic diastolic (congestive) heart failure; C15.9 Malignant neoplasm of esophagus, unspecified; M19.91 Primary osteoarthritis, unspecified site; I25.10 Atherosclerotic heart disease of native coronary artery without angina pectoris; K21.9 Gastro-esophageal reflux disease without esophagitis; F32.9 Major depressive disorder, single episode, unspecified; E03.9 Hypothyroidism, unspecified; F41.9 Anxiety disorder, unspecified; N39.3 Stress incontinence (female) (male); R26.9 Unspecified abnormalities of gait and mobility; I08.3 Combined rheumatic disorders of mitral, aortic and tricuspid valves; D64.9 Anemia, unspecified; E78.5 Hyperlipidemia, unspecified; E66.9 Obesity, unspecified; Z68.30 Body mass index [BMI] 30.0-30.9, adult; Z20.822 Contact with and (suspected) exposure to COVID-19; R29.6 Repeated falls; Z92.3 Personal history of irradiation; Z95.1 Presence of aortocoronary bypass graft; W19.XXXA Unspecified fall, initial encounter; Y92.009 Unspecified place in unspecified non-institutional (private) residence as the place of occurrence of the external cause; Z90.49 Acquired absence of other specified parts of digestive tract; Z79.82 Long term (current) use of aspirin; Z79.899 Other long term (current) drug therapy; Z79.4 Long term (current) use of insulin; Z79.890 Hormone replacement therapy; Z88.5 Allergy status to narcotic agent; Z88.2 Allergy status to sulfonamides
CPT/HCPCS: 99285; 36415; 94760; 93005; 97161; 97165; 83880; 80061; 80048 ×2; 84484; 85025 ×2; 87635; G0378 ×3; C8929; Q9950; 93306